=== PATIENT | female | born 1955 | race African-American/Black ===

== ENCOUNTER 2016-08-20 10:37 | Emergency (ER) | payer MEDICARE, OTHER ==
[~2016-08-20 10:37] MED LIST: ALLOPURINOL100 MG PO; ASPIRIN CHEWABL81 MG PO; CLARITIN10 MG PO; CLONIDINE 0.2M0.2 MG PO; COREG25 MG PO; ELAVIL25 MG PO; FEOSOL325 MG PO; LASIX20 MG PO; NORVASC 10MG TA10 MG PO; PRINIVIL20 MG PO; STOOL SOFTENER PO; VITAMIN D1000 UNI1 PO
== END 2016-08-20 13:47 | disposition home or self-care (01) ==
LOC: FER 10:37
DX: M77.9 Enthesopathy, unspecified (principal); I10 Essential (primary) hypertension; M10.9 Gout, unspecified; Z88.6 Allergy status to analgesic agent; Z88.8 Allergy status to other drugs, medicaments and biological substances; Z79.82 Long term (current) use of aspirin; Z79.899 Other long term (current) drug therapy
CPT/HCPCS: 73610; 73630; J1885